=== PATIENT | female | born 1965 | race Caucasian/White ===

== ENCOUNTER 2022-08-27 17:29 | Emergency (ER) | payer MEDICAID ==
[~2022-08-27] VITALS: Ht 162.6 cm; Wt 68.0 kg
[2022-08-27 17:46] VITALS: BP 129/83
--- NOTE | 2022-08-27 18:17 | NUR ---
57F BIB SELF TO ED WITH C/O LEFT SIDED NUMBNESS, DIZZINESS AND BLURRED VISION TODAY AT 0200, N/V/D X 3 DAYS. STOMACH PAIN 02/26. PT REPORTS PAINFUL URINATION TODAY. PMH:DENIES ALLERGIES:IBUPROFEN
--- NOTE | 2022-08-27 18:19 | NUR ---
DR AGOSTO AT BEDSIDE.
[2022-08-27] MEDS ORDERED: MECLIZINE 25 MG TAB PO ONE (18:25)
[2022-08-27] MEDS ORDERED: NACL 0.9% 1,000 ML IV ONE (18:25)
[2022-08-27 18:44] LABS: BASOPHILS % (AUTO) 0.7 % (0.0-2.0); EOSINOPHILS # (AUTO) 0.1 K/uL (0-0.4); EOSINOPHILS % (AUTO) 1.6 % (0.0-4.0); HEMATOCRIT 36.5 % (36-48); HEMOGLOBIN 12.3 g/dL (12.0-16.0); LYMPHOCYTES # (AUTO) 1.8 K/uL (2.5-16.5); LYMPHOCYTES % (AUTO) 49.5 % (20.5-51.1); MEAN CORPUSCULAR HEMOGLOBIN 30 pg (27-31); MEAN CORPUSCULAR HGB CONC 34 g/dL (33-37); MEAN CORPUSCULAR VOLUME 89.9 fL (80-94); MONOCYTES # (AUTO) 0.3 K/uL (0.8-1.0); MONOCYTES % (AUTO) 7.5 % (1.7-9.3); NEUTROPHILS # (AUTO) 1.5 K/uL (1.8-7.7); NEUTROPHILS % (AUTO) 40.7 % (42.2-75.2); PLATELET COUNT (AUTO) 166 K/uL (140-450); RED BLOOD CELL COUNT(AUTO) 4.06 MIL/uL (4.20-5.40); RED CELL DISTRIBUTION WIDTH 13.4 % (11.6-13.7); WHITE BLOOD COUNT (AUTO) 3.7 K/uL (4.8-10.8)
[2022-08-27 18:57] LABS: APPEARANCE,URINE CLEAR (CLEAR); BILIRUBIN,URINE NEGATIVE (NEGATIVE); BLOOD, URINE TRACE-I (NEGATIVE); COLOR,URINE YELLOW (YELLOW); LEUKOCYTE ESTERASE ,URINE NEGATIVE (NEGATIVE); NITRITE, URINE NEGATIVE (NEGATIVE); UGLUCOSE NEGATIVE (NEGATIVE)
[2022-08-27 19:07] LABS: CALCIUM OXALATE CRYSTALS,UR 0-10 /HPF (None Seen); OTHER CASTS, URINE None Seen /LPF (None Seen); WBC,URINE 0-5 /HPF (0-5)
[2022-08-27 19:08] LABS: ALBUMIN 3.9 g/dL (3.4-5.0); ANION GAP 13.2 (8-16); CARBON DIOXIDE 26.8 mmol/L (21-32); CREATININE 0.8 mg/dL (0.6-1.3); TOTAL BILIRUBIN 0.2 mg/dL (0.0-1.0)
--- NOTE | 2022-08-27 19:16 | NUR ---
GAVE REPORT TO VIVIAN COLVIN.
--- NOTE | 2022-08-27 19:51 | NUR ---
DR. AGOSTO AT BEDSIDE
[2022-08-27] MEDS ORDERED: BISM262C52 PO (20:05)
[2022-08-27] MEDS ORDERED: AMOX1TAB8 PO (20:05)
[2022-08-27] MEDS ORDERED: MECL-303 PO (20:05)
--- NOTE | 2022-08-27 20:27 | NUR ---
Patient discharged with v/s stable. Written and verbal after care instructions given and explained. Patient alert, oriented and verbalized understanding of instructions. Ambulatory with steady gait. All questions addressed prior to discharge. ID band removed. Patient advised to follow up with PMD. Rx of Amoxicillin/Potassium Clav, Bismuth Subsalicylate, and Meclizine given. Opportunity to ask questions provided and answered.
== END 2022-08-27 20:27 | disposition home or self-care (01) ==
LOC: MED 17:29
DX: K29.70 Gastritis, unspecified, without bleeding (principal); D72.819 Decreased white blood cell count, unspecified; R20.2 Paresthesia of skin; R19.7 Diarrhea, unspecified; Z79.899 Other long term (current) drug therapy
CPT/HCPCS: 36415; 80053; 81001; 83690; 85025; 96360; 99283; J8597